=== PATIENT | female | born 1980 | race Two or more races ===

== ENCOUNTER 2016-08-23 15:43 | Emergency (ER) | payer OTHER ==
[~2016-08-23] VITALS: Ht 154.9 cm; Wt 46.7 kg
[~2016-08-23 15:43] MED LIST: ACETAMINOPHEN-1 EAC1 ORAL; ATIVAN1 MG ORAL; CIPROFLOXACIN500 M2 ORAL; COLACE100 MG ORAL; FLONASE1 SPRAYS; GILDESS FE PO; IBUPROFEN600 MG ORAL; KEFLEX500 MG ORAL; MIRALAX17 G2 ORAL; NKM; NORCO 5-325 TA1 EACH ORAL; ONDANSETRON ODT4 MG ORAL; PHENERGAN6.25 MG/5 PO; PLAN B ONE-STE1.5 MG PO; REGLAN10 MG ORAL; SPIRONLACTONE PO
[2016-08-23 16:10] VITALS: BP 94/61
[2016-08-23 17:28] VITALS: BP 99/67
[2016-08-23 17:36] LABS: APPEARANCE,URINE SLIGHTLY CLOUDY; KETONES,URINE 1+ (NEGATIVE); LEUKOCYTE ESTERASE ,URINE 1+ (NEGATIVE); NITRITE,URINE NEGATIVE (NEGATIVE); PH,URINE 7 (4.5-8.0); PROTEIN,URINE NEGATIVE (NEGATIVE); UROBILINOGEN,URINE 1 MG/DL (0.0-1.0)
[2016-08-23 18:02] LABS: RBC,URINE 0-2 /HPF (0 - 2)
[2016-08-23 18:03] LABS: BACTERIA,URINE MODERATE /HPF; SQUAMOUS EPITHELIAL CELL,UR FEW /LPF (NONE/OCC)
[2016-08-23] MEDS ORDERED: NITROFURANTOIN100 M2 ORAL (18:08)
--- NOTE | 2016-08-23 18:16 | Emergency Room Report ---
History of Present Illness General Chief Complaint: Abdominal Pain Source: Patient Present Illness HPI 36 YO F presents with lower abd cramping and difficulty urinating assoc with some dysuria for 1-2 days. LMP was 1 month ago but is irregular on control. Denies nausea/vomiting, diarrhea, abd pain, fever/chills. Is . No history of previous ectopics, miscarriages. No other medical problems. Allergies: Uncoded Allergies: SEA FOOD (Allergy, Mild, 08/23/16) HIVES Patient History Past Medical History: none Past Surgical History: none Pertinent Family History: none Social History: Denies: alcohol use, drug use, smoking Last Menstrual Period: 06/22/16 Now: No Immunizations: UTD Reviewed Nursing Documentation: PMH: Agreed, PSxH: Agreed Nursing Documentation-PMH Past Medical History: No Stated History Hx Cardiac Problems: No Hx Cancer: No Hx Gastrointestinal Problems: No - HX GULL BLADDER REMOVED (08/2015) Hx Neurological Problems: No Review of Systems All Other Systems: negative except mentioned in HPI Physical Exam Vital Signs Date Time Temp Pulse Resp B/P Pulse Ox O2 Delivery O2 Flow Rate FiO2 08/23/16 15:49 97.9 67 16 100/63 99 Room Air Sp02 EP Interpretation: reviewed, normal General Appearance: normal inspection, well appearing, no apparent distress, alert Head: atraumatic ENT: normal ENT inspection, hearing grossly normal, normal voice Neck: normal inspection, full range of motion, supple, no bony tend Respiratory: normal inspection, lungs clear, normal breath sounds, no respiratory distress, no retraction, no wheezing Cardiovascular #1: regular rate, rhythm, no edema Gastrointestinal: normal inspection, normal bowel sounds, non tender, soft, no guarding, no hernia Genitourinary: other - Bedside sono shows + IUP, fully formed fetus with + FHR , actively moving Musculoskeletal: normal inspection, back normal, normal range of motion, Juancarlos' s Sign negative Neurologic: normal inspection, alert, oriented x3, responsive, 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 Was not aware. UA with bacteria in urine Initial dose of Macrobid given in ED along with 7 day course Advised OB followup [facility] for pre-zen care Pelvic sono confirms IUP, no other abnormalities 12 weeks, 6 days FHR 163 DC home Last Vital Signs Date Time Temp Pulse Resp B/P Pulse Ox O2 Delivery O2 Flow Rate FiO2 08/23/16 17:28 97.9 67 19 99/67 100 Room Air Status: improved Disposition: HOME, SELF-CARE Condition: Improved Scripts Nitrofurantoin Monohyd/M-Cryst* (MACROBID 100 MG*) 100 Mg Capsule 100 MG ORAL BID for 7 Days, #13 CAP Prov: CAROLIN KIM M.D. 08/23/16 Patient Instructions: Abdominal Pain During Additional Instructions: - Please follow up with OB as soon as possible to establish pre- care - Take ALL remaining antibiotics for UTI CAROLIN KIM M.D. Aug 23, 2016 18:16
[2016-08-23 19:11] VITALS: BP 99/65
--- NOTE | 2016-08-24 11:51 | Diagnostic Imaging Report ---
Indication: Right-sided pelvic pain, positive test Technique: Transabdominal and transvaginal images Comparison: None Findings: Uterus measures 10.2 cm length by 6.3 cm AP. Within the endometrium is a gestational sac containing a single live intrauterine . This demonstrates positive heart activity, heart rate 153 beats for minute. No subchorionic hemorrhage is demonstrated. The cervix is closed. Amniotic fluid volume is adequate. Placenta is anterior. dimensions as follows: [place]-rump length 59 mm, 12 weeks 3 days; biparietal diameter 19 mm, 13 weeks zero days; head circumference 72 mm, 13 weeks zero days, abdominal circumference 61 mm, 12 weeks 6 days. Estimated gestational age by average of ultrasound measurements is 12 weeks 6 days. Estimated gestational age by dates is 11 weeks zero days. Estimated date of confinement 03/01/2017 Due to early gestational age, only limited evaluation of anatomy performed.Four-chamber heart, grossly normal spine, normal insertion 3 vessel cord, bladder are all demonstrated. Right ovary measures 3.3 cm in length, contains a 2.1 cm presumed hemorrhagic corpus luteum. Left ovary measures 2.7 cm length. No left ovarian mass demonstrated Impression: 12 week 6 days, by average of ultrasound measurement, single live intrauterine . No unusual features 2 cm presumed hemorrhagic left ovarian corpus luteum
== END 2016-08-23 19:13 | disposition home or self-care (01) ==
LOC: EMR 18:19
DX: O26.891 Other specified pregnancy related conditions, first trimester (principal); O09.511 Supervision of elderly primigravida, first trimester; Z3A.12 12 weeks gestation of pregnancy; R30.0 Dysuria; R82.71 Bacteriuria; Z91.013 Allergy to seafood
CPT/HCPCS: 76801; 76830; 81003; 81025; 87086; 87181; 99283